=== PATIENT | male | born 1960 ===

== ENCOUNTER 2018-05-09 12:04 | Emergency (ER) | payer MEDICAID ==
[2018-05-09 12:05] VITALS: BMI 26.2
--- NOTE | 2018-05-09 13:07 | ED PDOC ---
Arrival/HPI - General Chief Complaint: Male Genitourinary Time Seen by Provider: 05/09/18 12:06 Historian: Patient - History of Present Illness Narrative History of Present Illness (Text): 05/09/18 13:03 58yr old male presents today with a 10 day history of bilateral testicular pain and dysuria and difficulty passing urine. pt states he is straining to urine. pt states he had these same symptoms in the past and never follow up with the urologist. pt denies fever/chills. no dizziness or weakness. pt states years ago his scrotum was a pink color and over time he states the scrotum has gradually lost the pink color and is now slightly darker in color. no medications taken for pain at home. no other complaints. Past Medical History - Provider Review Nursing Documentation Reviewed: Yes - Travel History Have you recently traveled outside [place] w/in the past 3 mons?: No - Infectious Disease Hx of Infectious Diseases: None - Cardiac Hx Cardiac Disorders: No - Pulmonary Hx Asthma: Yes - Genitourinary/Gynecological Hx Genitourinary Disorders: Yes Other/Comment: testicular pain - Psychiatric Hx Substance Use: No Family/Social History - Physician Review Nursing Documentation Reviewed: Yes Family/Social History: Unknown Family HX Smoking Status: Never Smoked Hx Alcohol Use: No Hx Substance Use: No Allergies/Home Meds Allergies/Adverse Reactions: Allergies No Known Allergies Allergy (Verified 07/13/17 09:18) Home Medications: Home Meds Medication Instructions Recorded Confirmed Unk Med For Asthma 05/09/18 Review of Systems - Review of Systems Constitutional: absent: Fatigue, Fevers Respiratory: absent: SOB, Cough Cardiovascular: absent: Chest Pain, Palpitations Gastrointestinal: absent: Abdominal Pain, Constipation, Diarrhea, Nausea, Vomiting Genitourinary Male: Dysuria, Frequency, Other (bilateral testicular pain). absent: Hematuria Musculoskeletal: absent: Arthralgias, Back Pain, Neck Pain Skin: absent: Rash, Pruritis Neurological: absent: Headache, Dizziness Psychiatric: absent: Anxiety, Depression Physical Exam Vital Signs Reviewed: Yes Vital Signs Temp Pulse Resp BP Pulse Ox 05/09/18 12:13 98.5 F 86 18 134/83 98 Temperature: Afebrile Blood Pressure: Normal Pulse: Regular Respiratory Rate: Normal Appearance: Positive for: Well-Appearing, Non-Toxic, Comfortable Pain Distress: None Mental Status: Positive for: Alert and Oriented X 3 - Systems Exam Head: Present: Atraumatic Mouth: Present: Moist Mucous Membranes Respiratory/Chest: Present: Clear to Auscultation Cardiovascular: Present: Regular Rate and Rhythm Abdomen: No: Tenderness, Distention, Rebound, Guarding Genitourinary Male: Present: Normal External Genitalia (no edema, no erythema; no ecchymosis; no necrosis; no lesions or masses), Testicle Tenderness (bilateral tenderness), Other (chaparoned by dr. Negro). No: Circumcised Penis, Lesions, Penile Discharge, Penile Swelling, Masses, Erythema, Hernias, Testicle Swelling Back: Present: Normal Inspection Upper Extremity: Present: Normal ROM Lower Extremity: Present: Normal ROM Neurological: Present: GCS=15, Speech Normal Skin: Present: Warm, Dry, Normal Color. No: Rashes Psychiatric: Present: Alert, Oriented x 3 Medical Decision Making ED Course and Treatment: 05/09/18 13:38 58-year-old male with a 10-day history of bilateral testicular pain dysuria, urinary frequency and urinary hesitancy. Patient with a prior history of epididymitis never followed up with urologist. Toradol IM Testicular ultrasound: FINDINGS: RIGHT TESTICLE: Measures 4.3 x 2.1 x 2.5 cm. Normal echotexture and flow. RIGHT EPIDIDYMIS: Epididymal head measures 1.2 x 0.7 x 0.7 cm. There is a 5 mm cyst in the head of the epididymis, otherwise normal appearance with normal flow. LEFT TESTICLE: Measures 4.6 x 2.0 x 2.5 cm. There is a 4 mm simple cyst in the lower pole. Otherwise normal in echotexture with normal flow. LEFT EPIDIDYMIS: Epididymal head measures 1.1 x 0.7 x 0.5 cm. There is a 4 x 4 x 3 mm cyst in the head of the epididymis, otherwise normal in appearance with normal flow. HYDROCELE: Moderate right and small left hydrocele. VARICOCELE: There is a left varicocele. OTHER FINDINGS: None. IMPRESSION: No evidence for testicular mass or torsion. Left varicocele. Moderate right and small left hydrocele. UA; wnl gc/chlamydia pending pt with testicular pain with negative UA and no epididymitis on ultrasound. Will treat prophylactically with Rocephin and Zithromax all results discussed in depth with the patient. Patient was advised to follow-up with urologist within the next 2 days. Patient was advised to me to return if symptoms worsen persist or if new concerning symptoms develop. Patient was also advised follow-up with a primary care physician. pt reassessment; pt is non toxic well appearing; no distress. stable vitals. Patient verbalizes understanding of discharge instructions and need for immediate followup. All aspects of this case were discussed the attending of record. impression; testicular pain, varicocele, hydrocele Motrin every 6 hours as needed for pain Follow-up with urologist within the next 2 days Follow-up the primary care physician within the next 2 days Return immediately if symptoms worsen persist or if new concerning symptoms develop - RAD Interpretation Radiology Orders: 05/09/18 12:38 TESTES DUPLEX COMPLETE [US] Stat Disposition/Present on Arrival - Present on Arrival Any Indicators Present on Arrival: No History of DVT/PE: No History of Uncontrolled Diabetes: No Urinary Catheter: No History of Decub. Ulcer: No History Surgical Site Infection Following: None - Disposition Have Diagnosis and Disposition been Completed?: Yes Diagnosis: Testicular pain, Urinary dysfunction, Hydrocele, Varicocele Disposition: HOME/ ROUTINE Disposition Time: 14:06 Patient Plan: Discharge Condition: GOOD Discharge Instructions (ExitCare): Hydrocele/Varicocele (DC) Additional Instructions: Motrin every 6 hours as needed for pain Follow-up with urologist within the next 2 days Follow-up the primary care physician within the next 2 days Return immediately if symptoms worsen persist or if new concerning symptoms develop Prescriptions: Ibuprofen [Motrin] 600 mg PO Q6H PRN #20 tab PRN Reason: pain/fever reduction Referrals: Geovany Patrick MD [Staff Provider] - Follow up with primary Joan Malloy MD [Medical Doctor] - Follow up with primary Dagoberto Morgan MD [Staff Provider] - Follow up with primary [employer] [Outside] - Follow up with primary [facility] [Outside] - Follow up with primary Forms: [employer] (Slovak), WORK NOTE
[2018-05-09 13:14] LABS: URINE BILIRUBIN NEGATIVE (NEGATIVE); URINE BLOOD NEGATIVE (NEGATIVE); URINE GLUCOSE (UA) NEGATIVE (NEGATIVE); URINE LEUKOCYTE ESTERASE NEGATIVE Leu/uL (NEGATIVE); URINE PROTEIN NEGATIVE mg/dL (<30 mg/dL); URINE UROBILINOGEN 0.2 E.U./dL (<1 E.U./dL)
[2018-05-09 13:16] LABS: URINE APPEARANCE CLEAR (CLEAR); URINE COLOR YELLOW (YELLOW)
--- NOTE | 2018-05-09 13:34 | US ---
Date of service: 05/09/2018 HISTORY: bilateral testicular pain TECHNIQUE: Realtime sonography through the scrotum with color and doppler flow. COMPARISON: None Available. FINDINGS: RIGHT TESTICLE: Measures 4.3 x 2.1 x 2.5 cm. Normal echotexture and flow. RIGHT EPIDIDYMIS: Epididymal head measures 1.2 x 0.7 x 0.7 cm. There is a 5 mm cyst in the head of the epididymis, otherwise normal appearance with normal flow. LEFT TESTICLE: Measures 4.6 x 2.0 x 2.5 cm. There is a 4 mm simple cyst in the lower pole. Otherwise normal in echotexture with normal flow. LEFT EPIDIDYMIS: Epididymal head measures 1.1 x 0.7 x 0.5 cm. There is a 4 x 4 x 3 mm cyst in the head of the epididymis, otherwise normal in appearance with normal flow. HYDROCELE: Moderate right and small left hydrocele. VARICOCELE: There is a left varicocele. OTHER FINDINGS: None. IMPRESSION: No evidence for testicular mass or torsion. Left varicocele. Moderate right and small left hydrocele.
[2018-05-09] MEDS ORDERED: cefTRIAXone (Rocephin) 250 mg Inj IM STA (14:10)
[2018-05-09 15:09] VITALS: BP 125/78; PULSE 78; RESP 16; TEMP 98.3; O2SAT 99
== END 2018-05-09 15:07 | disposition home or self-care (01) ==
LOC: ED 12:04
DX: N50.812 Left testicular pain (principal); N50.811 Right testicular pain; N43.3 Hydrocele, unspecified; I86.1 Scrotal varices; R39.198 Other difficulties with micturition
CPT/HCPCS: 81003; 87086; 87491; 87591; 93975; 96372; 99283; J0696; J1885